=== PATIENT | female | born 1930 | race American Indian/Alaskan Native ===

== ENCOUNTER 2017-12-11 10:39 | Emergency (ER) | payer MEDICARE ==
[2017-12-11] MEDS ORDERED: ASPIRIN PO ONE (11:01)
--- NOTE | 2017-12-11 11:42 | XRay Report ---
ROUTINE CHEST, TWO VIEWS: HISTORY: Chest pain, shortness of breath. The trachea, heart, mediastinal contour, lung chan and bony thorax are unremarkable. IMPRESSION: No acute cardiopulmonary process is identified
[2017-12-11 12:22] LABS: Basophils # (Auto) 0.1 K/mm3 (0.0-0.1); Basophils % (Auto) 1.3 % (0.0-1.8); Eosinophils # (Auto) 0.1 K/mm3 (0.0-0.4); Eosinophils % (Auto) 1.2 % (0.0-4.3); Hematocrit 40.6 % (30.3-42.9); Hemoglobin 13.3 gm/dl (10.1-14.3); Lymphocytes # (Auto) 2.2 K/mm3 (1.2-5.4); Lymphocytes % (Auto) 34.5 % (13.4-35.0); Mean Corpuscular HGB Conc 33 % (30-34); Mean Corpuscular Hemoglobin 31 pg (28-32); Mean Corpuscular Volume 95 fl (79-97); Monocytes # (Auto) 0.5 K/mm3 (0.0-0.8); Platelet Count 288 K/mm3 (140-440); Red Blood Count 4.29 M/mm3 (3.65-5.03); Red Cell Distribution Width 14.5 % (13.2-15.2)
[2017-12-11 12:46] LABS: BUN/Creatinine Ratio 19; Blood Urea Nitrogen 13 mg/dL (7-17); Hemolysis Index 52
--- NOTE | 2017-12-11 15:40 | Emergency Department Report ---
ED Chest Pain HPI - General Chief Complaint: Chest Pain Stated Complaint: SOB/CP Source: patient, family Mode of arrival: Wheelchair Limitations: No Limitations - History of Present Illness Initial Comments: At this as this 86-year-old lady here with a complaint of skin breakdown in between her buttocks around the anus. She entered denies any current chest pain nausea vomiting or shortness of breath. According to the daughter week ago she had pain in the center of her chest nausea vomiting shortness of breath and she had diarrhea for an entire day. days ago a rash developed around her anus and on Sunday and Sunday which is 3 days ago they went to the pharmacist who told him to put cortisone cream on the area. Since they've been doing that the skin breakdown has increased tremendously to now very very tender and very painful. She has a hemorrhoid also. She complains of rectal pain. But denies chest pain denies dyspnea. MD Complaint: chest pain (no chest pain), other (skin breakdown between the buttocks) Severity scale (0 -10): 10 Improves With: remaining still Worsens With: palpation, movement Treatments Prior to Arrival: none - Related Data Home Medications Medication Instructions Recorded Confirmed Last Taken Anastrozole (Nf) [Arimidex (Nf)] 1 mg PO DAILY 12/11/17 12/11/17 12/10/17 Diazepam [Valium] 5 mg PO Q6H PRN 12/11/17 12/11/17 12/10/17 Gabapentin [Neurontin] 300 mg PO HS 12/11/17 12/11/17 12/10/17 Previous Rx's Medication Instructions Recorded Last Taken Type Bacitracin/Polymixin B [Polysporin] 1 applic TP TID #3 tube 12/11/17 Unknown Rx Bismuth Tribromoph/Petrolatum 1 each TP TID #1 box 12/11/17 Unknown Rx [Xeroform 5"X9" Gauze Strip] Cephalexin [Keflex] 500 mg PO Q6HR #28 capsule 12/11/17 Unknown Rx Lidocaine Viscous 2% 15 ml MM 4XD #1 udc 12/11/17 Unknown Rx traMADol [Ultram 50 MG tab] 50 mg PO Q6HR PRN #14 tablet 12/11/17 Unknown Rx Allergies Allergy/AdvReac Type Severity Reaction Status Date / Time No Known Allergies Allergy Unverified 12/11/17 10:54 Heart Score - HEART Score History: Slightly suspicious EKG: Normal Age: > 65 Risk factors: 1-2 risk factors Troponin: < normal limit HEART Score: 3 ED Review of Systems ROS: Stated complaint: SOB/CP Other details as noted in HPI Constitutional: denies: chills, fever Eyes: denies: eye pain, eye discharge, vision change ENT: denies: ear pain, throat pain Respiratory: shortness of breath (1 week ago). denies: cough, wheezing Cardiovascular: chest pain (1 week ago ). denies: palpitations Endocrine: no symptoms reported Gastrointestinal: denies: abdominal pain, nausea, diarrhea Genitourinary: denies: urgency, dysuria, discharge Musculoskeletal: denies: back pain, joint swelling, arthralgia Skin: lesions. denies: rash Neurological: denies: headache, weakness, paresthesias Psychiatric: denies: anxiety, depression Hematological/Lymphatic: denies: easy bleeding, easy bruising ED Past Medical Hx - Past Medical History Previous Medical History?: No - Surgical History Past Surgical History?: Yes Additional Surgical History: lumpectomy - Social History Smoking Status: Never Smoker Substance Use Type: None - Medications Home Medications: Home Medications Medication Instructions Recorded Confirmed Last Taken Type Anastrozole (Nf) [Arimidex (Nf)] 1 mg PO DAILY 12/11/17 12/11/17 12/10/17 History Bacitracin/Polymixin B [Polysporin] 1 applic TP TID #3 tube 12/11/17 Unknown Rx Bismuth Tribromoph/Petrolatum 1 each TP TID #1 box 12/11/17 Unknown Rx [Xeroform 5"X9" Gauze Strip] Cephalexin [Keflex] 500 mg PO Q6HR #28 capsule 12/11/17 Unknown Rx Diazepam [Valium] 5 mg PO Q6H PRN 12/11/17 12/11/17 12/10/17 History Gabapentin [Neurontin] 300 mg PO HS 12/11/17 12/11/17 12/10/17 History Lidocaine Viscous 2% 15 ml MM 4XD #1 udc 12/11/17 Unknown Rx traMADol [Ultram 50 MG tab] 50 mg PO Q6HR PRN #14 tablet 12/11/17 Unknown Rx ED Physical Exam - General Limitations: No Limitations General appearance: alert, in distress - Head Head exam: Present: atraumatic (because of skin breakdown between her buttocks) , normocephalic - Eye Eye exam: Present: normal appearance, EOMI - ENT ENT exam: Present: normal exam, mucous membranes moist - Neck Neck exam: Present: normal inspection, full ROM - Respiratory Respiratory exam: Present: normal lung sounds bilaterally. Absent: respiratory distress, wheezes - Cardiovascular Cardiovascular Exam: Present: regular rate - GI/Abdominal GI/Abdominal exam: Present: soft. Absent: distended, tenderness, guarding - Rectal Rectal exam: Present: hemorrhoids, tenderness, other (skin breakdown stage I around the anus and the perineum) - Extremities Exam Extremities exam: Present: normal inspection, full ROM - Back Exam Back exam: Present: normal inspection, full ROM - Neurological Exam Neurological exam: Present: alert, oriented X3, CN II-XII intact - Psychiatric Psychiatric exam: Present: normal affect, normal mood - Skin Skin exam: Present: warm, dry, rash (skin breakdown between the buttocks and on the perineum stage I) ED Course Vital Signs 12/11/17 12/11/17 12/11/17 10:54 16:11 16:12 Temperature 98.2 F Pulse Rate 96 H Respiratory 20 20 Rate Blood Pressure 158/94 Blood Pressure 107/60 [Right] O2 Sat by Pulse 96 96 Oximetry ED Medical Decision Making - Lab Data Result diagrams: 12/11/17 11:58 12/11/17 11:58 - EKG Data -: EKG Interpreted by Me EKG shows normal: axis, intervals, QRS complexes Rate: tachycardia - EKG Data Interpretation: nonspecific ST-T wave ezra - Radiology Data Radiology results: report reviewed (chest x-ray: No acute cardiopulmonary disease) Critical care attestation.: If time is entered above; I have spent that time in minutes in the direct care of this critically ill patient, excluding procedure time. ED Disposition Clinical Impression: Skin ulcer, limited to breakdown of skin Hemorrhoid Qualifiers: Hemorrhoid type: unspecified Qualified Code(s): K64.9 - Unspecified hemorrhoids Disposition: TO HOME OR SELFCARE Is pt being admited?: No Does the pt Need Aspirin: No Condition: Stable Instructions: Acute Wound Care (ED), Pressure Ulcer (ED), Cellulitis (ED) Additional Instructions: Please follow up with her physician within 2 days. Please return to the emergency department if your symptoms worsen, or for fever or chills or if the chest pain from last week returns. Prescriptions: Bacitracin/Polymixin B [Polysporin] 1 applic TP TID #3 tube Bismuth Tribromoph/Petrolatum [Xeroform 5"X9" Gauze Strip] 1 each TP TID #1 box Cephalexin [Keflex] 500 mg PO Q6HR #28 capsule Lidocaine Viscous 2% 15 ml MM 4XD #1 udc traMADol [Ultram 50 MG tab] 50 mg PO Q6HR PRN #14 tablet PRN Reason: Pain Referrals: LUKAS FLORES MD [Primary Care Provider] - 3-5 Days Time of Disposition: 16:52
[2017-12-11] MEDS ORDERED: LIDOCAINE VISCOUS 2% ONE (16:17)
[2017-12-11] MEDS ORDERED: TRIPLE ANTIBIOTIC TP ONE (16:17)
[2017-12-11] MEDS ORDERED: LIDOCAINE VISCOUS 2% TP ONE (16:42)
[2017-12-11] MEDS ORDERED: POLYSPORIN TP ONE ×2 (16:42→17:00)
[2017-12-11 18:09] LABS: Creatine Kinase MB 7.4 ng/mL (0.0-4.0)
[2017-12-11] MEDS ORDERED: ULTRAM PO ONE (18:16)
[2017-12-11 19:04] VITALS: BP 126/70
[2017-12-12] MEDS ORDERED: NACL 0.9% 1000 ML 1,000 ML ONE (12:46)
== END 2017-12-11 19:07 | disposition home or self-care (01) ==
LOC: ED 10:39
DX: L98.411 Non-pressure chronic ulcer of buttock limited to breakdown of skin (principal); K64.9 Unspecified hemorrhoids
CPT/HCPCS: 36415; 71046; 80048; 82550; 82553; 84484; 85025; 93005; 93010; A6250; J7030